=== PATIENT | female | born 1970 | race African-American/Black ===

== ENCOUNTER 2018-08-26 05:01 | Emergency (ER) | payer MEDICAID, OTHER ==
[~2018-08-26] VITALS: Ht 157.5 cm; Wt 114.0 kg
[~2018-08-26 05:01] MED LIST: ACET-2178 PO; ALBU2.5V13 IH; ALBU2.5V13 NEB; ASPI-1158 PO; ATOR20TA PO; AZIT500T3 PO; CHOL100044 PO; DIPH25CA46 PO; GABA-531 PO; HYDR-523 PO; IBUP-2030 PO; LOSA50TA41 PO; MONT10TA21 PO; OMEP20CA5 PO; P20 PO; PULM50 HHN
[2018-08-26] MEDS ORDERED: DIAZEPAM 5 MG TABLET PO ONE (07:00)
[2018-08-26] MEDS ORDERED: KETOROLAC 60MG/2ML VIAL IM ONE (07:00)
[2018-08-26 09:06] VITALS: BP 144/77
== END 2018-08-26 09:08 | disposition home or self-care (01) ==
LOC: ER 05:01
DX: M54.30 Sciatica, unspecified side (principal); E66.9 Obesity, unspecified; Z68.42 Body mass index [BMI] 45.0-49.9, adult; Z79.82 Long term (current) use of aspirin; Z90.710 Acquired absence of both cervix and uterus
CPT/HCPCS: 96372; 99283; J1885